=== PATIENT | female | born 1945 | race Caucasian/White ===

== ENCOUNTER 2021-10-17 22:44 | Inpatient (IN) ==
[2021-10-18 00:53] LABS: ABS Lymphocytes 1.4 10^3/ul (1.0-4.8); ABS Monocytes 0.7 10^3/ul (0-0.8); Eosinophil % 0.1 %; Hematocrit 38 % (35-47); Hemoglobin 12.6 g/dL (12.0-16.0); Lymphocyte % 13.5 %; Mean Corpuscular HGB Conc 33 g/dL (31-36); Mean Corpuscular Hemoglobin 30 pg (27-31); Mean Corpuscular Volume 91 fL (80-97); Mean Platelet Volume 7.6 fL (7.4-10.4); Platelet Count 224 10^3/uL (150-450); Red Blood Count 4.21 10^6 /uL (3.70-4.87); Red Cell Distribution Width 14 % (10-15); White Blood Count 10.1 10^3/uL (3.5-10.8)
[2021-10-18 01:06] LABS: Activated Partial Thrombo Time 25.4 seconds (26.0-38.0); INR 1.11 (0.86-1.15)
[2021-10-18 01:26] LABS: Albumin 3.4 g/dL (3.2-5.2); Albumin/Globulin Ratio 1.6 (1-3); Calcium 8.8 mg/dL (8.6-10.3); Globulin 2.1 g/dL (2-4); Potassium 4.5 mmol/L (3.5-5.0); Total Bilirubin 0.5 mg/dL (0.2-1.0); Total Protein 5.5 g/dL (6.4-8.9); eGFR CKD-EPI 84.6 (>60)
[2021-10-18] MEDS ORDERED: Al Hydrox/Mg Hydrox/Simet LIQ 30 ML UDC PO PRN (01:29)
[2021-10-18 02:30] LABS: High Sensitivity Troponin 1 Hr 32 pg/mL (<15)
[2021-10-18] MEDS: Acetaminophen IV 1 GM/100ML 100 ML IV PRN (02:57)
[2021-10-18 03:23] LABS: Urine Appearance Cloudy; Urine Bilirubin Negative (Negative); Urine Blood 1+ (Negative); Urine Color Yellow; Urine Glucose Negative (Negative); Urine Ketones Negative (Negative); Urine Nitrite Negative (Negative); Urine Protein Negative (Negative); Urine Urobilinogen Negative (Negative)
[2021-10-18 03:50] LABS: Urine Amorphous Crystals Present (Absent); Urine Bacteria Absent (Absent); Urine Red Blood Cell 3+(>10/hpf) (Absent); Urine Squamous Epithelial Cell Present (Absent); Urine White Blood Cell 3+(>20/hpf) (Absent)
[2021-10-18] MEDS ORDERED: Morphine 2 MG/ML SYRINGE IV PRN (04:14)
[2021-10-18] MEDS: Morphine 2 MG/ML SYRINGE IV PRN ×2 (05:34→08:45)
[2021-10-18] MEDS: Ondansetron 4 mg VIAL 2 MG/ML 2 ml VIAL IV PRN ×2 (05:34→10:06)
[2021-10-18] MEDS ORDERED: Bupivacaine 0.5% W/EPI SDV 10 ML VIAL INJ ONE (14:45)
[2021-10-18] MEDS ORDERED: Midazolam 2 mg/2 ml VIAL 1 mg/ml 2 ml VIAL (2 mg) ONE (16:03)
[2021-10-18] MEDS ORDERED: Dexamethasone IV 4 MG/ML VIAL 1 ml VIAL ONE (16:03)
[2021-10-18] MEDS ORDERED: Propofol 10 MG/ML 20 ML BTL ONE (16:03)
[2021-10-18] MEDS ORDERED: Ondansetron 4 mg VIAL 2 MG/ML 2 ml VIAL ONE (16:03)
[2021-10-18] MEDS ORDERED: fentaNYL 100 mcg/2 ml 50 MCG/ML VIAL ONE ×2 (16:03→18:17)
[2021-10-18] MEDS ORDERED: Sodium Citrate/Citric Acid LIQ 15 ML UDC ONE (16:45)
[2021-10-18] MEDS ORDERED: Clindamycin 900 MG/D5W BAG 900 MG/50 ML BAG IVPB ONE (16:56)
[2021-10-18] MEDS ORDERED: Phenylephrine IV 10 MG/ML 1 ml VIAL ONE ×2 (17:03)
[2021-10-18] MEDS ORDERED: Ondansetron 4 mg VIAL 2 MG/ML 2 ml VIAL IV PRN (17:33)
[2021-10-18] MEDS ORDERED: Naloxone 0.4 mg VIAL 0.4 mg/ml 1 ml VIAL IV PRN (17:33)
[2021-10-18] MEDS ORDERED: Acetaminophen IV 1 GM/100ML 100 ML IV PRN (17:33)
[2021-10-18] MEDS ORDERED: Sodium Citrate/Citric Acid LIQ 15 ML UDC PO ONE (17:34)
[2021-10-18] MEDS ORDERED: Acetaminophen IV 1 GM/100ML 100 ML IV ONE (18:17)
[2021-10-18] MEDS: fentaNYL 100 mcg/2 ml 50 MCG/ML VIAL IV PRN ×4 (18:18→19:18)
[2021-10-18 21:05] LABS: Hematocrit 33 % (35-47); Hemoglobin 11.1 g/dL (12.0-16.0)
[2021-10-19] MEDS: Clindamycin 600 MG/D5W BAG IV SCH ×3 (01:15→16:17)
[2021-10-19] MEDS: Acetaminophen IV 1 GM/100ML 100 ML IV PRN ×2 (02:57→10:02)
[2021-10-19 05:54] LABS: ABS Lymphocytes 0.8 10^3/ul (1.0-4.8); ABS Monocytes 0.5 10^3/ul (0-0.8); ABS Neutrophils 5.4 10^3/ul (1.5-7.7); Eosinophil % 0.1 %; Hematocrit 30 % (35-47); Hemoglobin 10.5 g/dL (12.0-16.0); Lymphocyte % 12.3 %; Mean Corpuscular HGB Conc 34 g/dL (31-36); Mean Corpuscular Hemoglobin 32 pg (27-31); Mean Corpuscular Volume 92 fL (80-97); Mean Platelet Volume 7.6 fL (7.4-10.4); Nucleated Red Blood Cells % 0.1; Platelet Count 151 10^3/uL (150-450); Red Blood Count 3.32 10^6 /uL (3.70-4.87); Red Cell Distribution Width 14 % (10-15); White Blood Count 6.7 10^3/uL (3.5-10.8)
[2021-10-19 06:16] LABS: Calcium 8.3 mg/dL (8.6-10.3); Potassium 4.7 mmol/L (3.5-5.0); eGFR CKD-EPI 90.3 (>60)
[2021-10-19] MEDS: Enoxaparin 40 MG/0.4 ML SYR SUBCUT SCH (12:54)
[2021-10-19] MEDS ORDERED: cefTRIAXone 1 gm/50 mL D5W 1 GM/50 ML BAG IV SCH (18:00)
[2021-10-19] MEDS: cefTRIAXone 1 gm/50 mL D5W 1 GM/50 ML BAG IV SCH (20:20)
[2021-10-20 05:10] LABS: Hematocrit 29 % (35-47); Hemoglobin 9.7 g/dL (12.0-16.0); Mean Platelet Volume 7.8 fL (7.4-10.4); Platelet Count 137 10^3/uL (150-450)
[2021-10-20] MEDS: Enoxaparin 40 MG/0.4 ML SYR SUBCUT SCH (11:52)
[2021-10-20] MEDS: Acetaminophen IV 1 GM/100ML 100 ML IV PRN ×2 (11:52→18:28)
[2021-10-20] MEDS: cefTRIAXone 1 gm/50 mL D5W 1 GM/50 ML BAG IV SCH (19:26)
[2021-10-21] MEDS: Acetaminophen IV 1 GM/100ML 100 ML IV PRN ×3 (00:38→19:36)
[2021-10-21 06:59] LABS: Hematocrit 30 % (35-47); Hemoglobin 10.1 g/dL (12.0-16.0); Mean Platelet Volume 7.7 fL (7.4-10.4); Platelet Count 187 10^3/uL (150-450)
[2021-10-21] MEDS: Enoxaparin 40 MG/0.4 ML SYR SUBCUT SCH (10:46)
[2021-10-21] MEDS: cefTRIAXone 1 gm/50 mL D5W 1 GM/50 ML BAG IV SCH (20:01)
[2021-10-22] MEDS: Acetaminophen IV 1 GM/100ML 100 ML IV PRN ×2 (08:16→14:08)
[2021-10-22 12:39] VITALS: BP 109/72
[2021-10-22] MEDS: Enoxaparin 40 MG/0.4 ML SYR SUBCUT SCH (13:23)
== END 2021-10-22 15:50 | DRG 481 ==
LOC: ED 22:44 → SUATTDRO 10-18 00:30 → EDHOLD 10-18 00:30 → SSU 10-18 07:55
PROVIDERS: ADMIT Internal Medicine; ATTEND Pediatrics

== ENCOUNTER 2021-10-22 14:04 | Inpatient (IN) ==
[2021-10-22] MEDS ORDERED: Senna TAB 8.6 mg TAB PO PRN (17:14)
[2021-10-22] MEDS ORDERED: Magnesium Hydroxide LIQ 30 ML UDC PO PRN (17:14)
[2021-10-22] MEDS ORDERED: Amoxicillin/Clavul 500/125 TAB (Augmentin 500 mg tab) PO SCH (21:00)
[2021-10-22] MEDS: Cefdinir SUSP ORALSYR 50 MG/ML (250 mg/5 ml) PO SCH (21:36)
[2021-10-23] MEDS: Docusate LIQ 100 MG/10 ML UDC PO SCH ×3 (00:31→20:46)
[2021-10-23] MEDS: Cefdinir SUSP ORALSYR 50 MG/ML (250 mg/5 ml) PO SCH ×2 (10:30→20:41)
[2021-10-23] MEDS: Enoxaparin 40 MG/0.4 ML SYR SUBCUT SCH (11:23)
[2021-10-24 06:01] LABS: ABS Eosinophils 0.1 10^3/ul (0-0.6); ABS Lymphocytes 1.2 10^3/ul (1.0-4.8); ABS Monocytes 0.3 10^3/ul (0-0.8); ABS Neutrophils 3.1 10^3/ul (1.5-7.7); Eosinophil % 1.4 %; Hematocrit 31 % (35-47); Hemoglobin 10.5 g/dL (12.0-16.0); Lymphocyte % 25.3 %; Mean Corpuscular HGB Conc 34 g/dL (31-36); Mean Corpuscular Hemoglobin 32 pg (27-31); Mean Corpuscular Volume 94 fL (80-97); Mean Platelet Volume 7.6 fL (7.4-10.4); Nucleated Red Blood Cells % 0.1; Platelet Count 234 10^3/uL (150-450); Red Blood Count 3.28 10^6 /uL (3.70-4.87); Red Cell Distribution Width 15 % (10-15); White Blood Count 4.6 10^3/uL (3.5-10.8)
[2021-10-24 06:27] LABS: Albumin/Globulin Ratio 1.6 (1-3); Calcium 8.3 mg/dL (8.6-10.3); Globulin 1.9 g/dL (2-4); Potassium 4.5 mmol/L (3.5-5.0); Total Bilirubin 0.8 mg/dL (0.2-1.0); Total Protein 4.9 g/dL (6.4-8.9)
[2021-10-24] MEDS: Cefdinir SUSP ORALSYR 50 MG/ML (250 mg/5 ml) PO SCH ×2 (09:25→20:30)
[2021-10-24] MEDS: Docusate LIQ 100 MG/10 ML UDC PO SCH ×2 (09:25→20:30)
[2021-10-24] MEDS: Enoxaparin 40 MG/0.4 ML SYR SUBCUT SCH (11:58)
[2021-10-24] MEDS: Ondansetron ODT 4 mg TAB 4 MG TAB PO PRN (22:09)
[2021-10-25] MEDS: Ondansetron ODT 4 mg TAB 4 MG TAB PO PRN ×2 (08:02→16:59)
[2021-10-25] MEDS: Docusate LIQ 100 MG/10 ML UDC PO SCH ×2 (09:08→20:55)
[2021-10-25] MEDS: Cefdinir SUSP ORALSYR 50 MG/ML (250 mg/5 ml) PO SCH ×2 (09:08→20:53)
[2021-10-25] MEDS: Enoxaparin 40 MG/0.4 ML SYR SUBCUT SCH (12:21)
[2021-10-26] MEDS: Ondansetron ODT 4 mg TAB 4 MG TAB PO PRN (07:08)
[2021-10-26] MEDS: Cefdinir SUSP ORALSYR 50 MG/ML (250 mg/5 ml) PO SCH ×2 (08:30→20:48)
[2021-10-26] MEDS: Enoxaparin 40 MG/0.4 ML SYR SUBCUT SCH (11:36)
[2021-10-26] MEDS: Docusate LIQ 100 MG/10 ML UDC PO SCH ×2 (13:03→20:48)
[2021-10-27] MEDS: Ondansetron ODT 4 mg TAB 4 MG TAB PO PRN ×2 (07:41→19:43)
[2021-10-27] MEDS: Docusate LIQ 100 MG/10 ML UDC PO SCH ×2 (08:41→21:48)
[2021-10-27] MEDS: Enoxaparin 40 MG/0.4 ML SYR SUBCUT SCH (12:25)
[2021-10-28] MEDS: Ondansetron ODT 4 mg TAB 4 MG TAB PO PRN ×2 (06:14→16:39)
[2021-10-28] MEDS: Docusate LIQ 100 MG/10 ML UDC PO SCH (08:54)
[2021-10-28] MEDS: Enoxaparin 40 MG/0.4 ML SYR SUBCUT SCH (12:54)
[2021-10-29] MEDS: Ondansetron ODT 4 mg TAB 4 MG TAB PO PRN ×3 (07:26→16:52)
[2021-10-29] MEDS: Enoxaparin 40 MG/0.4 ML SYR SUBCUT SCH (11:30)
[2021-10-30] MEDS: Calcium Carb (TUMS) 500 mg CHEW TAB PO PRN ×2 (03:20→22:57)
[2021-10-30] MEDS: Enoxaparin 40 MG/0.4 ML SYR SUBCUT SCH (13:06)
[2021-10-30] MEDS: Ondansetron ODT 4 mg TAB 4 MG TAB PO PRN ×2 (15:42→21:21)
[2021-10-31] MEDS: Ondansetron ODT 4 mg TAB 4 MG TAB PO PRN ×2 (05:40→15:15)
[2021-10-31 06:24] LABS: ABS Eosinophils 0.1 10^3/ul (0-0.6); ABS Lymphocytes 1.1 10^3/ul (1.0-4.8); ABS Monocytes 0.4 10^3/ul (0-0.8); ABS Neutrophils 4.3 10^3/ul (1.5-7.7); Eosinophil % 1.1 %; Hematocrit 32 % (35-47); Hemoglobin 10.6 g/dL (12.0-16.0); Lymphocyte % 19.1 %; Mean Corpuscular HGB Conc 34 g/dL (31-36); Mean Corpuscular Hemoglobin 32 pg (27-31); Mean Corpuscular Volume 95 fL (80-97); Mean Platelet Volume 7.2 fL (7.4-10.4); Platelet Count 332 10^3/uL (150-450); Red Cell Distribution Width 18 % (10-15); White Blood Count 5.9 10^3/uL (3.5-10.8)
[2021-10-31 07:00] LABS: Albumin/Globulin Ratio 1.4 (1-3); Calcium 8.6 mg/dL (8.6-10.3); Globulin 2.2 g/dL (2-4); Potassium 4.5 mmol/L (3.5-5.0); Total Bilirubin 0.7 mg/dL (0.2-1.0); Total Protein 5.2 g/dL (6.4-8.9); eGFR CKD-EPI 94.8 (>60)
[2021-10-31] MEDS: Enoxaparin 40 MG/0.4 ML SYR SUBCUT SCH (11:16)
[2021-11-01] MEDS: Calcium Carb (TUMS) 500 mg CHEW TAB PO PRN ×2 (00:09→13:38)
[2021-11-01 05:18] VITALS: BP 137/83
[2021-11-01] MEDS: Ondansetron ODT 4 mg TAB 4 MG TAB PO PRN (08:05)
[2021-11-01] MEDS: Enoxaparin 40 MG/0.4 ML SYR SUBCUT SCH (13:17)
== END 2021-11-01 12:00 | disposition home or self-care (01) | DRG 560 ==
LOC: PMRU 16:04
PROVIDERS: ADMIT Physical Medicine & Rehabilitation; ATTEND Physical Medicine & Rehabilitation

== ENCOUNTER 2023-05-16 14:37 | Inpatient (IN) ==
[2023-05-16] MEDS ORDERED: Lactated Ringers 1000 ml BAG 1,000 ML IV ONE (18:19)
[2023-05-16 19:22] LABS: ABS Lymphocytes 1.2 10^3/uL (1.0-4.8); ABS Monocytes 0.7 10^3/uL (0.0-0.9); ABS Neutrophils 6.9 10^3/uL (1.5-7.6); ABS Nucleated RBC 0.01 10^3/ul; Eosinophil % 0.4 %; Hematocrit 40.7 % (35-45); Hemoglobin 13.5 g/dL (11.5-14.3); Lymphocyte % 13.1 %; Mean Corpuscular Hemoglobin 30.2 pg (27-33); Mean Corpuscular Hgb Conc 33.1 g/dL (31-36); Mean Corpuscular Volume 91.3 fL (80-97); Mean Platelet Volume 7.9 fL (7.5-11.2); Nucleated Red Blood Cells % 0.1 %/100WBC (0.0-0.8); Platelet Count 382 10^3/uL (150-450); Red Blood Count 4.45 10^6/uL (3.63-4.92); White Blood Count 8.8 10^3/uL (3.8-11.8)
[2023-05-16 19:22] LABS: Activated Partial Thrombo Time 26.5 seconds (26.0-38.0); INR 1.18 (0.83-1.13)
[2023-05-16 19:24] LABS: Albumin 3.4 g/dL (3.2-5.2); Albumin/Globulin Ratio 1.1 (1-3); C Reactive Protein 105.09 mg/L (<8.01); Calcium 9.2 mg/dL (8.6-10.3); Creatinine, Serum 0.87 mg/dL (0.51-0.95); Globulin 3.2 g/dL (2-4); Potassium 5.1 mmol/L (3.5-5.0); Total Bilirubin 1.1 mg/dL (0.2-1.0); Total Protein 6.6 g/dL (6.4-8.9); eGFR CKD-EPI 67.7 (>60)
[2023-05-16 19:30] LABS: High Sensitivity Troponin 1 Hr 77 pg/mL (<15)
[2023-05-16 22:03] LABS: Urine Appearance Cloudy; Urine Bilirubin Negative (Negative); Urine Blood Negative (Negative); Urine Color Amber; Urine Glucose Negative (Negative); Urine Ketones Negative (Negative); Urine Nitrite Negative (Negative); Urine Protein 1+(30 mg/dL) (Negative); Urine Specific Gravity 1.025 (1.002-1.030); Urine Urobilinogen Negative (Negative)
[2023-05-16] MEDS ORDERED: cefTRIAXone 1 gm/50 mL D5W 1 GM/50 ML BAG IV ONE (22:04)
[2023-05-16 22:08] LABS: Urine Bacteria Absent (Absent); Urine Red Blood Cell 3+(>10/hpf) (Absent); Urine Squamous Epithelial Cell Present (Absent); Urine White Blood Cell 3+(>20/hpf) (Absent)
[2023-05-17] MEDS ORDERED: Lactated Ringers 1000 ml BAG 1,000 ML IV ONE ×3 (00:32→12:03)
[2023-05-17] MEDS ORDERED: Morphine 4 MG/ML VIAL (1 ml) IV PRN (04:13)
[2023-05-17] MEDS ORDERED: Polyethylene Glycol 3350 17 GM PACKET PO PRN (04:49)
[2023-05-17] MEDS ORDERED: Senna TAB 8.6 mg TAB PO PRN (04:49)
[2023-05-17] MEDS ORDERED: Heparin 5000 UNITS/ML 1 mL VIAL SUBCUT SCH (06:00)
[2023-05-17] MEDS: Heparin 5000 UNITS/ML 1 mL VIAL SUBCUT SCH ×2 (06:13→17:21)
[2023-05-17 06:47] LABS: Hematocrit 33.7 % (35-45); Hemoglobin 11.1 g/dL (11.5-14.3); Mean Corpuscular Hemoglobin 30.2 pg (27-33); Mean Corpuscular Volume 91.5 fL (80-97); Mean Platelet Volume 7.8 fL (7.5-11.2); Platelet Count 324 10^3/uL (150-450); Red Blood Count 3.68 10^6/uL (3.63-4.92); Red Cell Distribution Width 13.8 % (12-17); White Blood Count 7.5 10^3/uL (3.8-11.8)
[2023-05-17 07:09] LABS: Calcium 8.3 mg/dL (8.6-10.3); Creatinine, Serum 0.65 mg/dL (0.51-0.95); Potassium 5.2 mmol/L (3.5-5.0); eGFR CKD-EPI 89.5 (>60)
[2023-05-17 07:45] LABS: Phosphorus 3.5 mg/dL (2.5-5.0)
[2023-05-17] MEDS: Nicotine PATCH 14 MG/24 HR PATCH TRANSDERM SCH (09:39)
[2023-05-17 11:45] LABS: Vitamin D Total 25(OH) 26.2 ng/mL (20-50)
[2023-05-17] MEDS ORDERED: Albuterol/Ipratropium NEB.SOL (2.5/0.5 MG) 3 ML NEB.SOLN INH ONE (14:09)
[2023-05-17] MEDS ORDERED: Albuterol HFA INHALER 8 gm MDI INH PRN (14:10)
[2023-05-17] MEDS ORDERED: Nicotine Lozenge mini 2 MG LOZNG.MINI MT PRN (14:14)
[2023-05-17] MEDS ORDERED: Albuterol/Ipratropium NEB.SOL (2.5/0.5 MG) 3 ML NEB.SOLN ONE (14:20)
[2023-05-17] MEDS ORDERED: Iodixanol (CONTRAST) 320 MG/ML 100 ML SDV IV ONE (15:35)
[2023-05-17] MEDS: Azithromycin 500 mg/250 ml NS 500 MG/250 ML BAG IVPB SCH (16:11)
[2023-05-17 17:08] LABS: HDL Cholesterol 24.8 mg/dL
[2023-05-17] MEDS: Senna TAB 8.6 mg TAB PO SCH (20:13)
[2023-05-17] MEDS: Magnesium Hydroxide LIQ 30 ML UDC PO SCH (20:14)
[2023-05-17 22:10] LABS: Ferritin 118.8 ng/mL (11-307)
[2023-05-17] MEDS: cefTRIAXone ADVAN VIAL 1 GM in NS 0.9% 50 ML 50 ML IV SCH (23:22)
[2023-05-18] MEDS: Heparin 5000 UNITS/ML 1 mL VIAL SUBCUT SCH ×2 (05:13→18:52)
[2023-05-18] MEDS: Magnesium Hydroxide LIQ 30 ML UDC PO SCH ×2 (09:16→19:51)
[2023-05-18] MEDS: Nicotine PATCH 14 MG/24 HR PATCH TRANSDERM SCH (09:16)
[2023-05-18 10:50] LABS: Calcium 8.4 mg/dL (8.6-10.3); Creatinine, Serum 0.59 mg/dL (0.51-0.95); Magnesium 2.4 mg/dL (1.9-2.7); Phosphorus 2.3 mg/dL (2.5-5.0); Potassium 4.8 mmol/L (3.5-5.0); eGFR CKD-EPI 91.6 (>60)
[2023-05-18] MEDS ORDERED: D5W 500 ml BAG 500 ML IV ONE (11:56)
[2023-05-18] MEDS: Polyethylene Glycol 3350 17 GM PACKET PO SCH (13:21)
[2023-05-18] MEDS: Azithromycin 500 mg/250 ml NS 500 MG/250 ML BAG IVPB SCH (17:31)
[2023-05-18] MEDS: Lactated Ringers 1000 ml BAG 1,000 ML IV SCH (18:52)
[2023-05-18] MEDS: Senna TAB 8.6 mg TAB PO SCH (19:50)
[2023-05-18] MEDS: cefTRIAXone ADVAN VIAL 1 GM in NS 0.9% 50 ML 50 ML IV SCH (22:22)
[2023-05-19] MEDS: ACETAMINOPHEN IV SCH ×5 (03:32→23:27)
[2023-05-19 06:25] LABS: ABS Lymphocytes 1.2 10^3/uL (1.0-4.8); ABS Monocytes 0.5 10^3/uL (0.0-0.9); ABS Neutrophils 6.7 10^3/uL (1.5-7.6); Eosinophil % 0.5 %; Hematocrit 32.6 % (35-45); Hemoglobin 10.5 g/dL (11.5-14.3); Lymphocyte % 14.6 %; Mean Corpuscular Hemoglobin 29.8 pg (27-33); Mean Corpuscular Hgb Conc 32.2 g/dL (31-36); Mean Corpuscular Volume 92.6 fL (80-97); Mean Platelet Volume 7.8 fL (7.5-11.2); Platelet Count 308 10^3/uL (150-450); Red Blood Count 3.52 10^6/uL (3.63-4.92); Red Cell Distribution Width 14.4 % (12-17); White Blood Count 8.5 10^3/uL (3.8-11.8)
[2023-05-19 06:43] LABS: Creatinine, Serum 0.55 mg/dL (0.51-0.95); Phosphorus 3.1 mg/dL (2.5-5.0); Potassium 4.8 mmol/L (3.5-5.0); eGFR CKD-EPI 93.2 (>60)
[2023-05-19] MEDS ORDERED: ACETAMINOPHEN IV SCH ×3 (09:00→17:00)
[2023-05-19] MEDS: Magnesium Hydroxide LIQ 30 ML UDC PO SCH ×2 (09:43→20:50)
[2023-05-19] MEDS: Polyethylene Glycol 3350 17 GM PACKET PO SCH (09:43)
[2023-05-19] MEDS: Lactated Ringers 1000 ml BAG 1,000 ML IV SCH (09:54)
[2023-05-19] MEDS: Nicotine PATCH 14 MG/24 HR PATCH TRANSDERM SCH (09:54)
[2023-05-19] MEDS ORDERED: Propofol 10 MG/ML 20 ML BTL ONE (12:41)
[2023-05-19] MEDS ORDERED: Lidocaine 2% PF 5 ML VIAL ONE (12:41)
[2023-05-19] MEDS ORDERED: fentaNYL 250 mcg/5 ml 50 MCG/ML 5 ml VIAL (250 MCG) ONE (12:42)
[2023-05-19] MEDS ORDERED: Phenylephrine IV 10 MG/ML 1 ml VIAL ONE (12:42)
[2023-05-19] MEDS ORDERED: Midazolam 2 mg/2 ml VIAL 1 mg/ml 2 ml VIAL (2 mg) ONE (12:42)
[2023-05-19] MEDS ORDERED: Rocuronium 50 mg VIAL 10 mg/ml 5 ml VIAL (50 mg) ONE (12:42)
[2023-05-19] MEDS ORDERED: Bupivacaine 0.5% SDV PF 30ML VIAL ONE (13:05)
[2023-05-19] MEDS ORDERED: Vancomycin 1,000 MG VIAL ONE (13:05)
[2023-05-19] MEDS ORDERED: Lidocaine 1% w EPI 1:100,000 MDV 20 ML VIAL ONE (13:05)
[2023-05-19] MEDS ORDERED: ceFAZolin 2 GM in NS PREMIX 2 GM/100 ML BAG IVPB ONE (13:27)
[2023-05-19] MEDS ORDERED: ROPIVACAINE 5 MG/ML 30 ML BTL (0.5%) ONE (13:30)
[2023-05-19] MEDS ORDERED: fentaNYL 100 mcg/2 ml 50 MCG/ML VIAL ONE (13:30)
[2023-05-19] MEDS ORDERED: Dexamethasone IV 4 MG/ML VIAL 1 ml VIAL ONE ×2 (13:30→15:20)
[2023-05-19] MEDS ORDERED: D5W 500 ml BAG 500 ML IV ONE (15:41)
[2023-05-19] MEDS: Azithromycin 500 mg/250 ml NS 500 MG/250 ML BAG IVPB SCH (16:09)
[2023-05-19] MEDS ORDERED: Al Hydrox/Mg Hydrox/Simet LIQ 30 ML UDC PO PRN (16:49)
[2023-05-19] MEDS ORDERED: Lactated Ringers 1000 ml BAG 1,000 ML IV ONE (18:00)
[2023-05-19] MEDS: Senna TAB 8.6 mg TAB PO SCH (20:51)
[2023-05-19 21:54] LABS: Hematocrit 32.4 % (35-45); Hemoglobin 10.4 g/dL (11.5-14.3)
[2023-05-19] MEDS: ceFAZolin 1 GM in Dextrose 1 GM/50 ML BAG IVPB SCH (22:34)
[2023-05-19] MEDS: cefTRIAXone ADVAN VIAL 1 GM in NS 0.9% 50 ML 50 ML IV SCH (23:04)
[2023-05-20] MEDS: ACETAMINOPHEN IV SCH ×6 (04:59→22:38)
[2023-05-20 06:19] LABS: ABS Monocytes 0.6 10^3/uL (0.0-0.9); ABS Neutrophils 10.4 10^3/uL (1.5-7.6); ABS Nucleated RBC 0.02 10^3/ul; Hematocrit 30.5 % (35-45); Hemoglobin 9.8 g/dL (11.5-14.3); Lymphocyte % 8.5 %; Mean Corpuscular Hemoglobin 30.1 pg (27-33); Mean Corpuscular Hgb Conc 32.3 g/dL (31-36); Mean Corpuscular Volume 93.1 fL (80-97); Nucleated Red Blood Cells % 0.1 %/100WBC (0.0-0.8); Platelet Count 320 10^3/uL (150-450); Red Blood Count 3.27 10^6/uL (3.63-4.92); Red Cell Distribution Width 14.3 % (12-17)
[2023-05-20 06:35] LABS: Calcium 7.6 mg/dL (8.6-10.3); Creatinine, Serum 0.55 mg/dL (0.51-0.95); Potassium 5.4 mmol/L (3.5-5.0); eGFR CKD-EPI 93.2 (>60)
[2023-05-20] MEDS: ceFAZolin 1 GM in Dextrose 1 GM/50 ML BAG IVPB SCH ×3 (06:37→22:57)
[2023-05-20] MEDS: Nicotine PATCH 14 MG/24 HR PATCH TRANSDERM SCH (08:42)
[2023-05-20] MEDS: Polyethylene Glycol 3350 17 GM PACKET PO SCH (08:42)
[2023-05-20] MEDS: Enoxaparin 40 MG/0.4 ML SYR SUBCUT SCH (08:42)
[2023-05-20] MEDS: Magnesium Hydroxide LIQ 30 ML UDC PO SCH ×2 (08:43→23:00)
[2023-05-20] MEDS ORDERED: Sodium Polystyrene ORAL.SUSP 15 GM/60 ML BTL PO ONE (10:25)
[2023-05-20] MEDS ORDERED: NS 0.9% 500 ml BAG 500 ML IV ONE (10:41)
[2023-05-20] MEDS ORDERED: Lactated Ringers 1000 ml BAG 1,000 ML IV ONE ×2 (17:36→17:39)
[2023-05-20] MEDS ORDERED: cefTRIAXone 1 gm/50 mL D5W 1 GM/50 ML BAG IV SCH (22:00)
[2023-05-20] MEDS: Senna TAB 8.6 mg TAB PO SCH (23:00)
[2023-05-21] MEDS: ceFAZolin 1 GM in Dextrose 1 GM/50 ML BAG IVPB SCH ×2 (05:42→14:39)
[2023-05-21] MEDS: ACETAMINOPHEN IV SCH ×4 (06:15→23:54)
[2023-05-21] MEDS: Polyethylene Glycol 3350 17 GM PACKET PO SCH (09:18)
[2023-05-21] MEDS: Magnesium Hydroxide LIQ 30 ML UDC PO SCH ×2 (09:18→21:05)
[2023-05-21] MEDS: Nicotine PATCH 14 MG/24 HR PATCH TRANSDERM SCH (09:20)
[2023-05-21] MEDS: Enoxaparin 40 MG/0.4 ML SYR SUBCUT SCH (09:22)
[2023-05-21 09:40] LABS: ABS Lymphocytes 0.9 10^3/uL (1.0-4.8); ABS Monocytes 0.5 10^3/uL (0.0-0.9); ABS Neutrophils 8.9 10^3/uL (1.5-7.6); ABS Nucleated RBC 0.01 10^3/ul; Eosinophil % 0.1 %; Hematocrit 29.6 % (35-45); Hemoglobin 9.5 g/dL (11.5-14.3); Lymphocyte % 8.8 %; Mean Corpuscular Hemoglobin 29.9 pg (27-33); Mean Corpuscular Volume 93.5 fL (80-97); Mean Platelet Volume 7.8 fL (7.5-11.2); Nucleated Red Blood Cells % 0.1 %/100WBC (0.0-0.8); Platelet Count 313 10^3/uL (150-450); Red Blood Count 3.17 10^6/uL (3.63-4.92); White Blood Count 10.3 10^3/uL (3.8-11.8)
[2023-05-21 10:26] LABS: Albumin 2.7 g/dL (3.2-5.2); Albumin/Globulin Ratio 1.2 (1-3); Calcium 7.7 mg/dL (8.6-10.3); Creatinine, Serum 0.5 mg/dL (0.51-0.95); Globulin 2.3 g/dL (2-4); Magnesium 2.2 mg/dL (1.9-2.7); Potassium 4.6 mmol/L (3.5-5.0); Total Bilirubin 0.4 mg/dL (0.2-1.0); eGFR CKD-EPI 95.3 (>60)
[2023-05-21] MEDS: Albuterol/Ipratropium NEB.SOL (2.5/0.5 MG) 3 ML NEB.SOLN INH SCH ×2 (15:30→21:12)
[2023-05-21] MEDS: Senna TAB 8.6 mg TAB PO SCH (19:33)
[2023-05-22] MEDS: ACETAMINOPHEN IV SCH (05:47)
[2023-05-22 06:11] LABS: ABS Eosinophils 0.1 10^3/uL (0.0-0.5); ABS Lymphocytes 0.8 10^3/uL (1.0-4.8); ABS Monocytes 0.3 10^3/uL (0.0-0.9); ABS Neutrophils 5.6 10^3/uL (1.5-7.6); ABS Nucleated RBC 0.02 10^3/ul; Eosinophil % 0.9 %; Hematocrit 27.9 % (35-45); Lymphocyte % 11.9 %; Mean Corpuscular Hemoglobin 30.2 pg (27-33); Mean Corpuscular Hgb Conc 32.3 g/dL (31-36); Mean Corpuscular Volume 93.5 fL (80-97); Mean Platelet Volume 7.9 fL (7.5-11.2); Nucleated Red Blood Cells % 0.2 %/100WBC (0.0-0.8); Platelet Count 285 10^3/uL (150-450); Red Blood Count 2.98 10^6/uL (3.63-4.92); Red Cell Distribution Width 14.5 % (12-17); White Blood Count 6.8 10^3/uL (3.8-11.8)
[2023-05-22 06:26] LABS: Calcium 7.7 mg/dL (8.6-10.3); Creatinine, Serum 0.39 mg/dL (0.51-0.95); Potassium 4.9 mmol/L (3.5-5.0); eGFR CKD-EPI 101.2 (>60)
[2023-05-22] MEDS: Polyethylene Glycol 3350 17 GM PACKET PO SCH (07:29)
[2023-05-22] MEDS: Magnesium Hydroxide LIQ 30 ML UDC PO SCH (08:24)
[2023-05-22] MEDS: Nicotine PATCH 14 MG/24 HR PATCH TRANSDERM SCH (08:42)
[2023-05-22] MEDS: Enoxaparin 30 MG/0.3 ML SYR SUBCUT SCH (08:42)
[2023-05-22] MEDS ORDERED: D5W 500 ml BAG 500 ML IV ONE (08:59)
[2023-05-22] MEDS: Albuterol/Ipratropium NEB.SOL (2.5/0.5 MG) 3 ML NEB.SOLN INH SCH (10:09)
[2023-05-22] MEDS ORDERED: Albuterol/Ipratropium NEB.SOL (2.5/0.5 MG) 3 ML NEB.SOLN INH PRN (10:11)
[2023-05-22] MEDS: Senna TAB 8.6 mg TAB PO SCH (20:12)
[2023-05-23 06:34] LABS: ABS Lymphocytes 1.2 10^3/uL (1.0-4.8); ABS Monocytes 0.4 10^3/uL (0.0-0.9); ABS Neutrophils 6.5 10^3/uL (1.5-7.6); ABS Nucleated RBC 0.01 10^3/ul; Eosinophil % 0.5 %; Hematocrit 30.9 % (35-45); Lymphocyte % 14.7 %; Mean Corpuscular Hemoglobin 30.3 pg (27-33); Mean Corpuscular Hgb Conc 32.3 g/dL (31-36); Mean Corpuscular Volume 93.8 fL (80-97); Mean Platelet Volume 7.8 fL (7.5-11.2); Nucleated Red Blood Cells % 0.1 %/100WBC (0.0-0.8); Platelet Count 328 10^3/uL (150-450); Red Blood Count 3.29 10^6/uL (3.63-4.92); Red Cell Distribution Width 14.9 % (12-17); White Blood Count 8.1 10^3/uL (3.8-11.8)
[2023-05-23 06:44] LABS: Blood Urea Nitrogen 19 mg/dL (6-24); CO2 Carbon Dioxide 40 mmol/L (22-32); Calcium 8.2 mg/dL (8.6-10.3); Chloride 100 mmol/L (101-111); Creatinine, Serum 0.34 mg/dL (0.51-0.95); Glucose 125 mg/dL (70-100); Potassium 4.6 mmol/L (3.5-5.0); Sodium 140 mmol/L (135-145); eGFR CKD-EPI 104.6 (>60)
[2023-05-23] MEDS: Enoxaparin 30 MG/0.3 ML SYR SUBCUT SCH (10:12)
[2023-05-23] MEDS: Nicotine PATCH 14 MG/24 HR PATCH TRANSDERM SCH (10:20)
[2023-05-23] MEDS: Polyethylene Glycol 3350 17 GM PACKET PO SCH (10:20)
[2023-05-23 10:52] LABS: Venous Bicarbonate HCO3 35.6 mmol/L (24-28)
[2023-05-23] MEDS: Albuterol/Ipratropium NEB.SOL (2.5/0.5 MG) 3 ML NEB.SOLN INH SCH ×3 (11:53→19:26)
[2023-05-23] MEDS ORDERED: Furosemide 20 mg/2 ml IV VIAL IV ONE (12:45)
[2023-05-23 17:04] LABS: Calcium 8.2 mg/dL (8.6-10.3); Creatinine, Serum 0.36 mg/dL (0.51-0.95); Potassium 4.2 mmol/L (3.5-5.0); eGFR CKD-EPI 103.2 (>60)
[2023-05-23] MEDS: Senna TAB 8.6 mg TAB PO SCH (21:24)
[2023-05-24] MEDS: Albuterol/Ipratropium NEB.SOL (2.5/0.5 MG) 3 ML NEB.SOLN INH SCH ×4 (01:08→20:47)
[2023-05-24 06:29] LABS: ABS Lymphocytes 0.9 10^3/uL (1.0-4.8); ABS Monocytes 0.4 10^3/uL (0.0-0.9); Eosinophil % 0.5 %; Hematocrit 29.2 % (35-45); Hemoglobin 9.6 g/dL (11.5-14.3); Lymphocyte % 11.8 %; Mean Corpuscular Hemoglobin 30.4 pg (27-33); Mean Corpuscular Hgb Conc 32.9 g/dL (31-36); Mean Corpuscular Volume 92.1 fL (80-97); Mean Platelet Volume 7.8 fL (7.5-11.2); Nucleated Red Blood Cells % 0.1 %/100WBC (0.0-0.8); Platelet Count 356 10^3/uL (150-450); Red Blood Count 3.17 10^6/uL (3.63-4.92); Red Cell Distribution Width 14.5 % (12-17); White Blood Count 7.2 10^3/uL (3.8-11.8)
[2023-05-24 07:03] LABS: Calcium 8.2 mg/dL (8.6-10.3); Creatinine, Serum 0.31 mg/dL (0.51-0.95); Potassium 4.2 mmol/L (3.5-5.0)
[2023-05-24 08:50] LABS: PCO2 Arterial 56 mmHg (35-45); PO2 Arterial 90 mmHg (80-100)
[2023-05-24] MEDS ORDERED: NS 0.9% 1000 ml BAG 1,000 ML IV ONE (08:57)
[2023-05-24] MEDS ORDERED: Furosemide 40 mg/4 ml IV VIAL IV SLOW PU ONE ×2 (09:38)
[2023-05-24] MEDS: Enoxaparin 30 MG/0.3 ML SYR SUBCUT SCH (10:51)
[2023-05-24] MEDS: Nicotine PATCH 14 MG/24 HR PATCH TRANSDERM SCH (10:52)
[2023-05-24] MEDS: Polyethylene Glycol 3350 17 GM PACKET PO SCH (10:52)
[2023-05-24 16:48] LABS: Calcium 8.2 mg/dL (8.6-10.3); Creatinine, Serum 0.47 mg/dL (0.51-0.95); Potassium 3.8 mmol/L (3.5-5.0); eGFR CKD-EPI 96.8 (>60)
[2023-05-24] MEDS: Senna TAB 8.6 mg TAB PO SCH (22:03)
[2023-05-25] MEDS: Albuterol/Ipratropium NEB.SOL (2.5/0.5 MG) 3 ML NEB.SOLN INH SCH ×4 (01:18→20:28)
[2023-05-25 05:56] LABS: Hematocrit 30.5 % (35-45); Hemoglobin 9.8 g/dL (11.5-14.3); Mean Corpuscular Hemoglobin 30.3 pg (27-33); Mean Corpuscular Hgb Conc 32.1 g/dL (31-36); Mean Corpuscular Volume 94.2 fL (80-97); Mean Platelet Volume 8.5 fL (7.5-11.2); Platelet Count 261 10^3/uL (150-450); Red Blood Count 3.23 10^6/uL (3.63-4.92); White Blood Count 6.9 10^3/uL (3.8-11.8)
[2023-05-25 06:13] LABS: Creatinine, Serum 0.41 mg/dL (0.51-0.95); Magnesium 1.8 mg/dL (1.9-2.7); Phosphorus 3.8 mg/dL (2.5-5.0); Potassium 3.9 mmol/L (3.5-5.0)
[2023-05-25] MEDS ORDERED: Magnesium Sulfate 2 gm BAG 2 GM/50 ML BAG IVPB ONE (07:04)
[2023-05-25] MEDS ORDERED: Potassium Chlor 20 meq TAB.ER PO ONE (07:05)
[2023-05-25] MEDS ORDERED: Furosemide 20 mg/2 ml IV VIAL IV ONE (09:33)
[2023-05-25] MEDS ORDERED: Potassium Chloride LIQUID 20 MEQ/15 ML LIQUID PO ONE (11:00)
[2023-05-25] MEDS: Nicotine PATCH 14 MG/24 HR PATCH TRANSDERM SCH (11:03)
[2023-05-25] MEDS: Polyethylene Glycol 3350 17 GM PACKET PO SCH (11:04)
[2023-05-25] MEDS: Enoxaparin 30 MG/0.3 ML SYR SUBCUT SCH (11:28)
[2023-05-25] MEDS ORDERED: Lactated Ringers 1000 ml BAG 500 ML IV ONE (16:26)
[2023-05-25 17:36] LABS: Calcium 8.1 mg/dL (8.6-10.3); Creatinine, Serum 0.43 mg/dL (0.51-0.95); Potassium 4.2 mmol/L (3.5-5.0); eGFR CKD-EPI 98.9 (>60)
[2023-05-25] MEDS: Ferric Gluconate IV 250 MG in NS 0.9% 250 ml 200 ML IVPB SCH (18:40)
[2023-05-25] MEDS: Senna TAB 8.6 mg TAB PO SCH (21:20)
[2023-05-26] MEDS: Albuterol/Ipratropium NEB.SOL (2.5/0.5 MG) 3 ML NEB.SOLN INH SCH ×3 (01:52→08:33)
[2023-05-26 06:01] LABS: Hematocrit 28.4 % (35-45); Hemoglobin 9.6 g/dL (11.5-14.3); Mean Corpuscular Hemoglobin 30.8 pg (27-33); Mean Corpuscular Hgb Conc 33.7 g/dL (31-36); Mean Corpuscular Volume 91.4 fL (80-97); Mean Platelet Volume 7.8 fL (7.5-11.2); Platelet Count 346 10^3/uL (150-450); Red Blood Count 3.11 10^6/uL (3.63-4.92); White Blood Count 5.9 10^3/uL (3.8-11.8)
[2023-05-26 06:19] LABS: Creatinine, Serum 0.4 mg/dL (0.51-0.95); Potassium 4.1 mmol/L (3.5-5.0); eGFR CKD-EPI 100.6 (>60)
[2023-05-26] MEDS: Nicotine PATCH 14 MG/24 HR PATCH TRANSDERM SCH (07:58)
[2023-05-26] MEDS: Enoxaparin 30 MG/0.3 ML SYR SUBCUT SCH (08:00)
[2023-05-26 08:22] LABS: Magnesium 2.2 mg/dL (1.9-2.7)
[2023-05-26] MEDS: Polyethylene Glycol 3350 17 GM PACKET PO SCH (10:56)
[2023-05-26] MEDS ORDERED: Furosemide 40 mg/4 ml IV VIAL IV ONE (11:04)
[2023-05-26] MEDS ORDERED: Albuterol/Ipratropium NEB.SOL (2.5/0.5 MG) 3 ML NEB.SOLN INH PRN (12:52)
[2023-05-26] MEDS: Senna TAB 8.6 mg TAB PO SCH (20:31)
[2023-05-27 05:43] LABS: ABS Lymphocytes 1.1 10^3/uL (1.0-4.8); ABS Monocytes 0.4 10^3/uL (0.0-0.9); ABS Neutrophils 4.9 10^3/uL (1.5-7.6); Eosinophil % 0.6 %; Hematocrit 28.4 % (35-45); Hemoglobin 9.7 g/dL (11.5-14.3); Lymphocyte % 16.7 %; Mean Corpuscular Hemoglobin 31.3 pg (27-33); Mean Corpuscular Hgb Conc 34.1 g/dL (31-36); Mean Corpuscular Volume 91.6 fL (80-97); Mean Platelet Volume 7.3 fL (7.5-11.2); Platelet Count 352 10^3/uL (150-450); Red Cell Distribution Width 15.6 % (12-17); White Blood Count 6.4 10^3/uL (3.8-11.8)
[2023-05-27 06:00] LABS: Calcium 8.1 mg/dL (8.6-10.3); Creatinine, Serum 0.4 mg/dL (0.51-0.95); eGFR CKD-EPI 100.6 (>60)
[2023-05-27] MEDS: Enoxaparin 30 MG/0.3 ML SYR SUBCUT SCH (08:50)
[2023-05-27] MEDS: Nicotine PATCH 14 MG/24 HR PATCH TRANSDERM SCH (08:51)
[2023-05-27] MEDS ORDERED: Furosemide 20 mg/2 ml IV VIAL IV ONE (10:44)
[2023-05-27] MEDS: Polyethylene Glycol 3350 17 GM PACKET PO SCH (12:37)
[2023-05-27] MEDS: Ferric Gluconate IV 250 MG in NS 0.9% 250 ml 200 ML IVPB SCH (16:29)
[2023-05-27] MEDS: Senna TAB 8.6 mg TAB PO SCH (20:56)
[2023-05-28 08:33] LABS: Hematocrit 31.3 % (35-45); Hemoglobin 10.5 g/dL (11.5-14.3); Mean Corpuscular Hemoglobin 31.1 pg (27-33); Mean Corpuscular Hgb Conc 33.7 g/dL (31-36); Mean Corpuscular Volume 92.4 fL (80-97); Mean Platelet Volume 7.4 fL (7.5-11.2); Platelet Count 400 10^3/uL (150-450); Red Blood Count 3.38 10^6/uL (3.63-4.92); Red Cell Distribution Width 16.4 % (12-17); White Blood Count 6.6 10^3/uL (3.8-11.8)
[2023-05-28 08:52] LABS: Calcium 8.4 mg/dL (8.6-10.3); Creatinine, Serum 0.46 mg/dL (0.51-0.95); Potassium 3.7 mmol/L (3.5-5.0); eGFR CKD-EPI 97.3 (>60)
[2023-05-28] MEDS: Nicotine PATCH 14 MG/24 HR PATCH TRANSDERM SCH (09:19)
[2023-05-28] MEDS: Enoxaparin 30 MG/0.3 ML SYR SUBCUT SCH (09:19)
[2023-05-28] MEDS: Polyethylene Glycol 3350 17 GM PACKET PO SCH (09:19)
[2023-05-28 13:11] LABS: Rapid COVID-19 Molecular Undetected (Undetected)
[2023-05-28 14:29] VITALS: BP 100/67
== END 2023-05-28 16:40 | DRG 492 ==
LOC: ED 14:37 → SUATTDRO 23:46 → INTOOBSV 23:46 → EDHOLD 23:46 → MED 05-17 00:40 → SUATTDRO 05-17 08:00 → SSU 05-19 17:49
PROVIDERS: ADMIT Internal Medicine; ATTEND Hospitalist